=== PATIENT | female | born 1955 | race Caucasian/White ===

== ENCOUNTER 2021-02-18 09:36 | Emergency (ER) | payer MEDICAID ==
[~2021-02-18] VITALS: Ht 142.2 cm; Wt 70.0 kg
[2021-02-18] MEDS ORDERED: HYDR12.54 MT (11:21)
[2021-02-18] MEDS ORDERED: HYDROCHLOROTHIAZIDE 12.5MG CAPSULE PO ONE (11:30)
[2021-02-18 11:53] VITALS: BP 170/82
== END 2021-02-18 11:54 | disposition home or self-care (01) ==
LOC: ER 09:36
DX: I10 Essential (primary) hypertension (principal); M19.90 Unspecified osteoarthritis, unspecified site; Z85.9 Personal history of malignant neoplasm, unspecified; Z90.710 Acquired absence of both cervix and uterus
CPT/HCPCS: 99283

== ENCOUNTER 2021-09-04 11:16 | Emergency (ER) | payer MEDICAID, OTHER ==
[~2021-09-04] VITALS: Ht 142.2 cm; Wt 68.0 kg
[~2021-09-04 11:16] MED LIST: HYDR12.54 MT
[2021-09-04] MEDS ORDERED: LISINOPRIL 20MG TABLET PO ONE (11:45)
[2021-09-04] MEDS ORDERED: HYDROCHLOROTHIAZIDE 12.5MG CAPSULE PO ONE (11:45)
[2021-09-04] MEDS ORDERED: LISI-648 MT (11:46)
[2021-09-04 12:26] VITALS: BP 150/64
== END 2021-09-04 12:58 | disposition home or self-care (01) ==
LOC: ER 11:16
DX: I10 Essential (primary) hypertension (principal); Z76.0 Encounter for issue of repeat prescription; Z85.42 Personal history of malignant neoplasm of other parts of uterus; Z91.14 Patient's other noncompliance with medication regimen; Z90.710 Acquired absence of both cervix and uterus
CPT/HCPCS: 99283